=== PATIENT | male | born 1955 | race Caucasian/White ===

== ENCOUNTER 2023-12-16 07:05 | Day surgery (SDC) | payer OTHER, MEDICARE ==
[~2023-12-16 07:05] MED LIST: Lactated Ringers 1,000 ML IV SCH
[2023-12-16] MEDS: Lactated Ringers 1,000 ML IV SCH (07:18)
[2023-12-16] MEDS ORDERED: Propofol 200 MG/20 ML SDV ONE ×3 (08:05→09:03)
[2023-12-16] MEDS ORDERED: fentaNYL 100 MCG/2 ML SDV ONE (08:06)
[2023-12-16] MEDS ORDERED: Midazolam 1 MG/ML 2 ML SDV ONE (08:06)
[2023-12-16] MEDS ORDERED: Simethicone Drops 40 MG/0.6 ML 30 ML Bottle ONE (08:29)
== END 2023-12-16 10:13 | disposition home or self-care (01) ==
LOC: VM.SDS 07:05
PROVIDERS: ATTEND Family Medicine
DX: Z12.11 Encounter for screening for malignant neoplasm of colon (principal); D12.0 Benign neoplasm of cecum; D12.2 Benign neoplasm of ascending colon; D12.6 Benign neoplasm of colon, unspecified; D12.3 Benign neoplasm of transverse colon; D12.4 Benign neoplasm of descending colon; D12.5 Benign neoplasm of sigmoid colon; K62.1 Rectal polyp; K64.4 Residual hemorrhoidal skin tags; E11.29 Type 2 diabetes mellitus with other diabetic kidney complication; I10 Essential (primary) hypertension; E78.5 Hyperlipidemia, unspecified; N40.0 Benign prostatic hyperplasia without lower urinary tract symptoms; I48.0 Paroxysmal atrial fibrillation; G47.33 Obstructive sleep apnea (adult) (pediatric); E66.01 Morbid (severe) obesity due to excess calories; Z68.41 Body mass index [BMI] 40.0-44.9, adult; Z86.010 Personal history of colon polyps; Z79.01 Long term (current) use of anticoagulants; Z79.84 Long term (current) use of oral hypoglycemic drugs; Z79.899 Other long term (current) drug therapy; Z88.0 Allergy status to penicillin
CPT/HCPCS: 00811; 82947; 88305; A9270-GY; J2250; J2704; J3010; J7120